=== PATIENT | female | born 1945 | race Caucasian/White ===

== ENCOUNTER 2016-11-27 20:56 | Observation (INO) | payer MEDICARE ==
[~2016-11-27] VITALS: Ht 167.6 cm; Wt 63.3 kg
--- NOTE | ~2016-11-27 | HEMODYNAMI ---
PATIENT:LEENA ELMORE MEDICAL RECORD: [id number] : 41 [id number] ADMISSION DATE: 11/28/16 Generatedon:11/29/201611:26 Patient name: LEENA ELMORE Patient #: [id number] SSN: : 1945 Date of study: 11/29/2016 Page: Of Hemodynamic Procedure Report Patient Data Patient Demographics Procedure consent was obtained First Name: LEENA Gender: Female Last Name: RAMÍREZ : 1945 Patient #: [id number] Age: 71 year(s) Race: Unknown Additional ID: [id number] Contact details [address]: [address] [place] [address] State: [place] City: [place] Zip code: [address] Admission Admission Data Admission Date: 11/28/2016 Admission Time: 0:59 Room #: D.2115 Lab Results Lab Result Date: 11/29/2016 Lab Result Time: 0:00 Biochemistry Name Units Result Min Max BUN mg/dl 17 --(---*)-- 7 18 Creatinine mg/dl 1 --(--*-)-- 0.6 1.3 CBC Name Units Result Min Max Hemoglobin g/dl 15.5 --(-*--)-- 13.5 17.5 Procedure Procedure Types Cath Procedure Diagnostic Procedure [facility] w/Coronaries PCI Procedure Coronary Stent Initial x2 Miscellaneous Procedures Moderate Sedation up to 45 minutes Procedure Description Procedure Date Procedure Date: 11/29/2016 Procedure Start Time: 10:54 Procedure End Time: 11:20 Procedure Staff Name Function Carlos Canela MD Performing Physician Christiano Curtis RT Scrub Camryn Sandoval RN Nurse Alfredo Singh RT Monitor Procedure Data Cath Procedure Fluoroscopy Diagnostic fluoroscopy Total fluoroscopy Time: 6.4 time: 6.4 min min Diagnostic fluoroscopy Total fluoroscopy dose: 577 dose: 577 mGy mGy Contrast Material Contrast Material Type Amount (ml) Isovue 300 137 Entry Location Entry Primary Successful Side Size Upsize Upsize Entry Closure Merrill ccessful Closure Location (Fr) 1 (Fr) 2 (Fr) Remarks Device Remarks Femoral Left 5 Fr 6 Fr Mechanical PT OPTED artery Short Compression OUT OF USING A CLOSURE DEVICE DUE TO ONLY 2% OF PT CANT HAVE THEM-PER IN [place]. USING A FEMSTOP INSTEAD. Diagnostic catheters Device Type Used For End Catheter Placement Cordis 5Fr JL 4.0 Left Coronary Catheter (MP) Angiography Cordis 5Fr 3DRC Catheter Right Coronary (MP) Angiography Cordis 5Fr Pigtail LV Angiography Catheter (MP) Procedure Complications No complications Procedure Medications Medication Administration Route Dosage unlisted medication Oxygen NC 2 l/min Heparin Flush Bag added to field 2 bags (1000units/500ml NS) Lidocaine 2% added to field 20 Versed I.V. 1 mg Fentanyl I.V. 50 mcg Versed I.V. 0.5 mg Fentanyl I.V. 25 mcg Fentanyl I.V. 25 mcg Versed I.V. 0.5 mg Fentanyl I.V. 25 mcg Fentanyl I.V. 25 mcg Heparin Bolus I.V. 4000 units Fentanyl I.V. 25 mcg Fentanyl I.V. 25 mcg Hemodynamics Rest Heart Rate: 63 (bpm) Pressure Samples Time Site Value (mmHg) Purpose Heart Use Rate(bpm) 10:59 LV 132/14,16 EDP 63 10:59 AO 125/58(85) Pullback 63 10:59 LV 129/17,18 Pullback 63 Gradients Valve Time Site 1 Site 2 Mean SEP/DFP Peak To Heart Use (mmHg) (sec/min) Peak Rate (mmHg) (bpm) Aortic 10:59 LV AO 4 19 4 63 129/17,18 125/58(85) Calculations Valve P-P Mean Valve Index Valve Source Name Gradient Area Flow (cm2) Aortic 4 4 4 4 Snapshots Pre Cath Intra NCS Post Cath Vital Signs Time Heart Resp SPO2 etCO2 DE9fhns NIBP (mmHg) Rhythm Pain Sedation Rate (ipm) (%) (mmHg) (mmHg) Status Level (bpm) 10:40:31 66 22 99 0 0 164/71(122) NSR 0 (11) 10(A) , No pain 10:45:00 64 17 98 0 0 155/65(108) NSR 0 (11) 10(A) , No pain 10:49:24 59 15 100 0 0 133/64(100) NSR 0 (11) 10(A) , No pain 10:53:42 58 18 99 0 0 118/61(89) NSR 0 (11) 10(A) , No pain 10:57:56 64 17 98 0 0 123/52(89) NSR 0 (11) 9(A) , No pain 11:02:12 61 17 97 0 0 119/51(82) NSR 0 (11) 9(A) , No pain 11:06:28 61 18 97 0 0 100/47(73) NSR 0 (11) 9(A) , No pain 11:10:38 63 19 97 0 0 98/47(74) NSR 0 (11) 9(A) , No pain 11:15:37 84 18 98 0 0 129/66(90) NSR 0 (11) 9(A) , No pain 11:19:22 65 16 98 0 0 130/66(93) NSR 0 (11) 9(A) , No pain Medications Time Medication Route Dose Verified Delivered Reason Notes Effectiveness by by 10:22:11 pt arrived IV is pt iv is infiltrated infilltrated red and raised, aprox. 3 inches of swelling and redness proximal to left wrist iv site. raised apx 1/2 inch. IV discontinued. new IV to be started. Dr rolle and Meseret Cavazos RN informed. 10:41:19 Oxygen NC 2 Carlos Camryn Per physician l/min St. Diego Sandoval RN, MD 10:41:29 Heparin Flush added 2 Carlos Carlos Per physician Bag to bags [facility] (1000units/500ml field MD LERMA NS) 10:41:40 Lidocaine 2% added 20ml Carols Carlos used for to vial [facility] procedure field MD LERMA 10:46:34 Versed I.V. 1 mg Carlos Camryn for sedation [facility] Diego Sandoval RN, MD 10:46:40 Fentanyl I.V. 50 Carlos Camryn for sedation mcg [facility] Diego Sandoval RN, MD 10:48:00 Fentanyl I.V. 25 Carlos Camryn for sedation mcg [facility] Diego Sandoval RN, MD 10:48:13 Versed I.V. 0.5 Carlos Camryn for sedation mg [facility]. Diego Sandoval RN, MD 10:50:45 Versed I.V. 0.5 Carlos Crowecca for sedation mg St. Diego Sadnoval RN, MD 10:50:54 Fentanyl I.V. 25 Carlos Crowecca for sedation mcg [facility] Diego Sandoval RN, MD 10:52:12 Fentanyl I.V. 25 Carlos Camryn for sedation mcg [facility] Diego Sandoval RN, MD 10:54:06 Fentanyl I.V. 25 Carlos Camryn for sedation mcg St[facility] Diego Sandoval RN, MD 10:56:06 Fentanyl I.V. 25 Carlos Camryn for sedation mcg St. Diego Sandoval RN, MD 11:00:38 Heparin Bolus I.V. 4000 Carlos Cowan for dose v erified units St. Diego Sandoval RN anticoagulation with dr st MD murray 11:01:30 Fentanyl I.V. 25 Carlos Camryn for sedation mcg St. Diego Sandoval RN, MD Procedure Log Time Note 10:00:50 Camryn Sandoval RN sent for patient. Start room use. 10:12:43 ACC Patient presents with Unstable Angina CCS Anginal Class 3--Marked limitation of physical activity, angina occurs with ordinary activity.. 10:12:47 Diagnostic Cath status Urgent 10:14:07 Time tracking: Call back 10:14:11 Plan of Care:Hemodynamics will remain stable., Cardiac rhythm will remain stable., Comfort level will be maintained., Respiratory function will remain adequate., Patient/ family verbilizes understanding of procedure., Procedure tolerated without complication., Recovers from procedure without complications.. 10:15:59 Lab Result : BUN 17 mg/dl 10:15:59 Lab Result : Hemoglobin 15.5 g/dl 10:15:59 Lab Result : Creatinine 1 mg/dl 10:21:28 Patient received from PCU to CCL 1 Alert and oriented. Tansferred to table in Supine position. 10:21:29 Warm blankets applied, and dereje hugger turned on for patient comfort. 10:21:30 Correct patient and procedure confirmed by team. 10:21:31 Signed procedure consent form obtained from patient. 10:21:33 ECG and BP/O2 sat monitors applied to patient. 10:22:11 pt arrived was administered by ; IV is infiltrated; pt iv is infilltrated red and raised, aprox. 3 inches of swelling and redness proximal to left wrist iv site. raised apx 1/2 inch. IV discontinued. new IV to be started. Dr rolle and Meseret Cavazos RN informed. 10:26:03 H&P Date Dictated: 11/28/2016 Within 30 days and on chart., H&P Addendum completed by physician on day of procedure. (MUST COMPLETE FOR ALL OUTPATIENTS). 10:26:05 Pre-procedure instructions explained to patient. 10:26:05 Pre-op teaching completed and patient verbalized understanding. 10:26:07 Family in waiting room. 10:26:09 Patient NPO since Midnight. 10:26:13 Is the patient allergic to Iodine/contrast media? No. 10:26:14 Is patient on blood thinner?Yes 10:26:17 ACC The patient was administered the following blood thiners within the last 24 hours: ACCPlavix 10:27:20 Last dose of Plavix was 11/28 in the pm. 10:27:47 Patient diabetic? No. 10:27:56 Patient not . Patient is over age 55. 10:27:59 Previous problem with sedation/anesthesia? No ? 10:28:01 Snore? No 10:28:02 Sleep apnea? No 10:28:04 Deviated septum? No 10:28:04 Opens mouth fully? Yes 10:28:05 Sticks out tongue? Yes 10:28:07 Airway obstruction? No ? 10:28:10 Dentures? No ? 10:28:14 Pre procedure: left dorsailis pedis pulse 1+ Palpable, but thready & weak; easily obliterated 10:30:01 Pt states that we are unable to try radial due to scar tissue per Physician in [place]. Pt also states that we are unable to go right femoral due to plugged artery from closure device. 10:30:17 Patient pain scale 0/10 ?. 10:30:34 IV left hand D/C'd due to infiltration. 10:30:40 Lab results completed and on chart. 10:31:33 IV started by Camryn Sandoval RN inleft forearm with a 20 gauge IV catheter with 0.9% NaCl at KVO. 10:31:40 Use device set Femoral Dx 10:31:42 Tegaderm 4 x 4 opened to sterile field. 10:31:43 Acist Manifold opened to sterile field. 10:31:43 Acist Hand Control opened to sterile field. 10:31:45 Acist Syringe opened to sterile field. 10:31:45 Bag Decanter opened to sterile field. 10:31:46 Medline Cath Pack opened to sterile field. 10:31:46 Terumo 5Fr Tuttle Sheath opened to sterile field. 10:31:47 St Pepe 260cm J .035 wire opened to sterile field. 10:31:48 Diagnostic Infinity 5Fr Multipack catheter opened to sterile field. 10:32:01 20g IV Catheter opened to sterile field. 10:39:12 Vital chart was started 10:41:19 Oxygen 2 l/min NC was administered by Camryn Sandoval RN; Per physician; 10:41:29 Heparin Flush Bag (1000units/500ml NS) 2 bags added to field was administered by Carlos Canela MD; Per physician; 10:41:40 Lidocaine 2% 20ml vial added to field was administered by Carlos Canela MD; used for procedure; 10:44:15 --------ALL STOP TIME OUT------ 10:44:15 Final Timeout: patient, procedure, and site verified with staff and physician. All members of the team are in agreement. 10:44:17 Left groin site verified by team. 10:44:21 Physical assessment completed. ASA score P 2 - A patient with mild systemic disease as per Carlos Canela MD. 10:44:25 Sedation plan: IV Moderate Sedation Versed, Fentanyl 10:46:34 Versed 1 mg I.V. was administered by Camryn Sandoval RN; for sedation; 10:46:40 Fentanyl 50 mcg I.V. was administered by Camryn Sandoval RN; for sedation; 10:48:00 Fentanyl 25 mcg I.V. was administered by Camryn Sandoval RN; for sedation; 10:48:13 Versed 0.5 mg I.V. was administered by Camryn Sandoval RN; for sedation; 10:50:45 Versed 0.5 mg I.V. was administered by Camryn Sandoval RN; for sedation; 10:50:54 Fentanyl 25 mcg I.V. was administered by Camryn Sandoval RN; for sedation; 10:52:12 Fentanyl 25 mcg I.V. was administered by Camryn Sandoval RN; for sedation; 10:53:55 Procedure started. 10:54:06 Fentanyl 25 mcg I.V. was administered by Camryn Sandoval RN; for sedation; 10:54:42 Local anesthetic to left femerol artery with Lidocaine 2% by Carlos Canela MD.INITIAL ACCESS ONLY 10:54:53 A 5 Fr sheath was inserted into the Left Femoral artery 10:55:08 A Cordis 5Fr JL 4.0 Catheter (MP) was advanced over the wire and used for Left Coronary Angiography. 10:55:11 LCA angiography performed. 10:56:06 Fentanyl 25 mcg I.V. was administered by Camryn Sandoval RN; for sedation; 10:56:28 Catheter removed. 10:56:34 A Cordis 5Fr 3DRC Catheter (MP) was advanced over the wire and used for Right Coronary Angiography. 10:56:41 RCA angiography performed. 10:57:47 Catheter removed. 10:57:53 A Cordis 5Fr Pigtail Catheter (MP) was advanced over the wire and used for LV Angiography. 10:57:56 LCA angiography performed. 10:58:02 LV gram done using MC 10:58:04 LV hemodynamics recorded. 10:58:07 Injector settings: Ml/sec: 10, Volume: 20, 10:59:42 EF : 60 % 10:59:43 Catheter removed. 10:59:51 Sheath upsized to a 6 Fr Short. 11:00:08 ACC PCI Site: pLAD has 80% stenosis. 11:00:11 ACC Pre-intervention AURORA Flow is 3. 11:00:27 Perez [place] 300cm 0.014 guide wire opened to sterile field. 11:00:28 Terumo 6Fr Tuttle Sheath opened to sterile field. 11:00:28 Eyewitness Surveillance BasixCompak Inflation Kit opened to sterile field. 11:00:29 Cordis 6FR XBLAD 3.5 guide catheter opened to sterile field. 11:00:38 Heparin Bolus 4000 units I.V. was administered by Camryn Sandoval RN; for anticoagulation; dose verified with dr rolle 11:00:39 6 Fr XBLAD 3.5 guide catheter was inserted over the wire 11:01:30 Fentanyl 25 mcg I.V. was administered by Camryn Sandoval RN; for sedation; 11:01:30 COUGAR wire advanced. 11:05:08 Inflation Number: 1 A Medtronic Integrity 3.0 X 15 stent was prepped and advanced across the Prox LAD. The stent was deployed at 12 CHAVA for 0:22 (min:sec). 11:05:33 Wire removed. 11:05:46 ACC PCI Site: pCirc has 80% stenosis. 11:05:50 ACC Pre-intervention AURORA Flow is 3. 11:05:56 COUGAR wire advanced. 11:06:36 Stent catheter was removed intact over wire. 11:08:46 Inflation number: 1 A [place] Sci [place] 2.5 X 15 balloon was prepped and advanced across the Prox CX, then inflated to 6 CHAVA for 0:06 (min:sec). 11:09:34 Inflation number: 2 The [place] Sci [place] 2.5 X 15 balloon was reinflated across the Prox CX, to 8 CHAVA for 0:25 (min:sec). 11:10:09 Balloon removed over the wire. 11:10:59 Procedure type changed to Cath procedure, Diagnostic procedure, LHC, LHC w/Coronaries, PCI procedure, Coronary Stent Initial x2, Miscellaneous Procedures, Moderate Sedation up to 45 minutes 11:12:23 Inflation Number: 3 A Medtronic Integrity 2.5 X 8 stent was prepped and advanced across the Prox CX. The stent was deployed at 10 CHAVA for 0:21 (min:sec). 11:12:59 Stent catheter was removed intact over wire. 11:13:00 Wire removed. 11:13:00 Guide catheter removed. 11:15:30 Sheath removed intact; hemostasis achieved with Mechanical Compression to the Left Femoral artery. 11:15:44 St Pepe Femstop Arch Gold opened to sterile field. 11:15:48 Procedure ended.(Physican Out) 11:19:02 Contrast amount:Isovue 300 137ml. 11:19:07 Fluoroscopy time 06.40 minutes. 11:19:11 Fluoroscopy dose: 577 mGy 11:19:11 Flurop Dose total: 577 11:19:12 Sharps counted by scrub and verified by R.N. 11:19:13 Insertion/operative site no bleeding no hematoma. 11:19:23 Post left femerol artery:stable 11:19:31 Femstop placed over the left femerol artery at 150 mmHg. Hemostasis achieved. 11:19:33 Post Procedure Pulses reassessed and unchanged 11:19:39 Post procedure rhythm: sinus rhythm 11:19:41 Post procedure instruction explained to patient.Patient verbalizes understanding. 11:20:19 Procedure and supply charges have been captured, reviewed, submitted and are correct. 11:20:40 Procedure Complication : No complications 11:20:42 Vital chart was stopped 11:20:44 Report given to PCU. 11:20:46 See physician's report for complete and final results. 11:20:50 Patient transfered to PCU with Bed. 11:20:52 Procedure ended. 11:20:52 Full Disclosure recording stopped 11:20:57 End room use (Document Last) Intervention Summary Intervention Notes Time ActionType Lesion and Equipment Action# Pressure Duration Attributes Used 11:05:08 Place stent Prox LAD Medtronic 1 12 00:23 Integrity 3.0 X 15 stent 11:08:46 Inflate Prox CX [place] 1 6 00:06 balloon Sci [place] 2.5 X 15 balloon 11:09:34 Reinflate Prox CX [place] 2 8 00:25 balloon Sci [place] 2.5 X 15 balloon 11:12:23 Place stent Prox CX Medtronic 3 10 00:21 Integrity 2.5 X 8 stent Device Usage Item Name Manufacture Quantity Catalog Number Hospital Part Current Mini [facility] Lot# / Charge Number Stock Stock Serial# Code Tegaderm 4 3M 1 [id number] 193736 241418 480489 5 x 4 Acist Acist 1 07340 585111 625833 661226 5 Manifold Medical Systems Inc Acist Hand Acist 1 22893 113947 542072 541609 5 Control Medical Systems Inc Acist Acist 1 39858 007476 552963 689648 20 Syringe Medical Systems Inc Bag Microtek 1 2002S 962348 17340 998611 5 Blogvio. Medline Cardinal 1 [id number] 029758 84017 212569 5 Cath StudentFunder Terumo 5Fr Terumo 1 [id number] 377551 550628 488077 [address]pe St Pepe 1 684856 539381 104595 107290 30 260cm J .035 wire Diagnostic Cardinal 1 [id number] 718080 86225 467598 30 Infinity Health 5Fr Multipack catheter 20g IV B. Mcclure 1 [id number] 155770 132547 924052 5 Catheter Cordis 5Fr Cardinal 1 256292 5 JL 4.0 Health Catheter (MP) Cordis 5Fr Cardinal 1 325912 5 3DRC Health Catheter (MP) Cordis 5Fr Cardinal 1 544225 5 Pigtail Health Catheter (MP) Perez Perez 1 [id number] 078875 364015 613146 1 [place] Vascular 300cm 0.014 guide wire Terumo 6Fr Terumo 1 ODS607 347889 541966 695051 40 Tuttle Sheath Merit Merit 1 [id number] 480713 447201 107571 15 K Spine Medical Inflation Kit Cordis 6FR Cardinal 1 [id number] 417411 004143 965333 10 XBLAD 3.5 Health guide catheter Medtronic Medtronic 1 [id number] 072211 797928 5 [id number] Integrity 3.0 X 15 stent [place] Sci [place] 1 [id number] 772955 442509 410968 1 [id number] [place] Scientific 2.5 X 15 balloon Medtronic Medtronic 1 [id number] 578012 598062 7 [id number] Integrity 2.[address] Pepe 1 [id number] 491670 052251 891239 5 Femstop Arch Gold Signature Audit [place] Stage Time Signature Unsigned Intra-Procedure 11/29/2016 Alfredo Singh 11:26:52 AM RT(R) Signatures Monitor : Alfredo Singh RT Signature : Date : Time : [facility] [address] [place] [address]
[2016-11-27 22:02] LABS: BASOPHILS 0.8 % (0-2); EOSINOPHILS 2.9 % (0-7); HEMATOCRIT 42.4 % (36.0-48.0); HEMOGLOBIN 14.3 g/dL (12-16); IMMATURE GRANULOCYTES 0.2 % (0-5); LYMPHOCYTES 31.3 % (15-50); MCH 30.8 pg (26.0-34.0); MCHC 33.7 g/dL (31.0-37.0); MCV 91.2 fL (80.0-100.0); MEAN PLATELET VOLUME 10.9 fL (7.4-10.4); MONOCYTES 10.2 % (2-11); NEUTROPHILS 54.6 % (40-80); PLATELET COUNT 203 10x3/uL (130-400); RBC 4.65 10x6/uL (4.00-5.40); RDW 13.5 % (11.5-14.5); WBC 5.2 10x3/uL (4.8-10.8)
[2016-11-27 22:17] LABS: ALBUMIN 3.9 g/dL (3.4-5.0); ALKALINE PHOSPHATASE 66 U/L (46-116); ALT (SGPT) 28 U/L (10-68); BILIRUBIN - TOTAL 0.61 mg/dL (0.2-1.3); CALC OSMOLALITY 276 mosm/kg (275-300); CALCIUM 9.5 mg/dL (8.5-10.1); CARBON DIOXIDE 27.1 mmol/L (21.0-32.0); CHLORIDE - SERUM 102 mmol/L (98-107); CREATININE - SERUM 0.8 mg/dL (0.6-1.3); GLUCOSE 85 mg/dL (74-106); POTASSIUM - SERUM 3.8 mmol/L (3.5-5.1); PROTEIN - SERUM 7.7 g/dL (6.4-8.2); SODIUM 139 mmol/L (136-145); UREA NITROGEN 12 mg/dL (7-18); eGFR NON AFRICAN AMERICAN 74 mL/min (90-120)
[2016-11-27 22:27] LABS: AMYLASE - SERUM 56 U/L (25-115); CKMB 0.7 U/L (0.0-3.6); LIPASE 107 U/L (73-393)
[2016-11-27 22:28] LABS: CREATINE KINASE 816 UL (21-215); TROPONIN-I < 0.017 ng/mL (0.000-0.060)
[2016-11-28 06:36] LABS: CKMB 0.7 U/L (0.0-3.6)
[2016-11-28 06:42] LABS: CREATINE KINASE 873 UL (21-215); TROPONIN-I < 0.017 ng/mL (0.000-0.060)
[2016-11-28 11:08] LABS: CKMB 0.7 U/L (0.0-3.6); CREATINE KINASE 926 UL (21-215); TROPONIN-I < 0.017 ng/mL (0.000-0.060)
[2016-11-28 16:49] LABS: CKMB 0.7 U/L (0.0-3.6)
[2016-11-28 16:54] LABS: CREATINE KINASE 939 UL (21-215); TROPONIN-I < 0.017 ng/mL (0.000-0.060)
--- NOTE | 2016-11-28 16:59 | NUR ---
TRANSFER FROM ER BY W/C. ANNAINTED TO ROOM. CALL LIGHT IN REACH. WILL CONT. PLAN OF CARE.
[2016-11-28 17:32] VITALS: BP 129/65
[2016-11-28] MEDS ORDERED: PLAVIX75 MG PO (17:43)
[2016-11-28] MEDS ORDERED: LOPRESSOR25 MG PO (17:43)
[2016-11-28] MEDS ORDERED: BAYER CHEWABLE81 MG PO (17:43)
[2016-11-28] MEDS ORDERED: LEXAPRO10 MG PO (17:44)
[2016-11-28] MEDS ORDERED: ISOSORBIDE MONO30 M1 PO (17:44)
[2016-11-28 17:45] VITALS: BP 134/68; Ht 167.6 cm; Wt 63.3 kg
[2016-11-28 20:00] VITALS: BP 138/61
[2016-11-28 22:57] LABS: CKMB 0.7 U/L (0.0-3.6)
[2016-11-28 22:58] LABS: CREATINE KINASE 891 UL (21-215); TROPONIN-I < 0.017 ng/mL (0.000-0.060)
[2016-11-29] VITALS: BP 124/58
[2016-11-29 04:00] VITALS: BP 111/52
[2016-11-29 05:01] LABS: BASOPHILS 0.8 % (0-2); EOSINOPHILS 1.8 % (0-7); HEMATOCRIT 46.3 % (36.0-48.0); HEMOGLOBIN 15.5 g/dL (12-16); IMMATURE GRANULOCYTES 0.2 % (0-5); LYMPHOCYTES 29.4 % (15-50); MCH 30.8 pg (26.0-34.0); MCHC 33.5 g/dL (31.0-37.0); MCV 91.9 fL (80.0-100.0); MEAN PLATELET VOLUME 10.6 fL (7.4-10.4); MONOCYTES 15.6 % (2-11); NEUTROPHILS 52.2 % (40-80); PLATELET COUNT 214 10x3/uL (130-400); RBC 5.04 10x6/uL (4.00-5.40); RDW 13.7 % (11.5-14.5); WBC 6.2 10x3/uL (4.8-10.8)
[2016-11-29 05:33] LABS: CALCIUM 9.3 mg/dL (8.5-10.1); CARBON DIOXIDE 26.3 mmol/L (21.0-32.0); CHLORIDE - SERUM 101 mmol/L (98-107); CKMB 0.7 U/L (0.0-3.6); GLUCOSE 84 mg/dL (74-106); SODIUM 136 mmol/L (136-145); eGFR NON AFRICAN AMERICAN 58 mL/min (90-120)
[2016-11-29 05:34] LABS: CALC OSMOLALITY 272 mosm/kg (275-300); CREATINE KINASE 862 UL (21-215); TROPONIN-I < 0.017 ng/mL (0.000-0.060); UREA NITROGEN 17 mg/dL (7-18)
[2016-11-29 08:00] VITALS: BP 140/56
--- NOTE | 2016-11-29 10:24 | NUR ---
PRE-OPS GIVEN. TO WOOD CARVING LATHE OPERATOR BY BED.
[2016-11-29 10:55] LABS: APPEARANCE CLEAR (CLEAR); BILIRUBIN NEGATIVE (NEGATIVE); COLOR YELLOW (YELLOW); GLUCOSE NEGATIVE (NEGATIVE); KETONE MODERATE mg/dL (NEGATIVE); LEUKOCYTE ESTERASE TRACE (NEGATIVE); NITRITE NEGATIVE (NEGATIVE); PROTEIN NEGATIVE (NEGATIVE); SPECIFIC GRAVITY 1.015 (1.005-1.020); UROBILINOGEN NORMAL (NORMAL)
[2016-11-29 10:58] LABS: BACTERIA MODERATE /hpf (NONE SEEN); EPITHELIAL CELLS 0-5 /hpf (0-5); MUCUS <1+ /lpf (NONE SEEN)
--- NOTE | 2016-11-29 11:40 | NUR ---
BACK FROM RECORDER GRAVITY PROSPECTING. VS WNL. LEFT GROIN STABLE WITH FEMSTOP INTACT. WILL MONITOR.
[2016-11-29 12:00] VITALS: BP 126/58
--- NOTE | 2016-11-29 12:35 | NUR ---
FEMSTOP RELEASED. PULSES PRESENT. NO BLEEDING NOTED. WILL CONT. TO MONITOR.
[2016-11-29] MEDS ORDERED: NORVASC10 MG PO (15:11)
[2016-11-29 16:00] VITALS: BP 119/56
--- NOTE | 2016-11-29 17:06 | NUR ---
BED REST UP. GROIN STABLE.
--- NOTE | 2016-11-29 18:30 | NUR ---
IV AND TELEMETRY DCD. DC PLANS GIVEN. UNDERSTANDING VOICED. ESCORTED TO CAR BY W/C.
--- NOTE | 2016-11-30 09:17 | OP ---
PATIENT NAME: LEENA ELMORE MEDICAL RECORD: [id number] :41 LOCATION:D.M2 D.2115 ADMISSION DATE:11/28/16 SURGEON: ANGELA ELIZABETH MD DATE OF OPERATION: 11/29/2016 PROCEDURE: Left heart catheterization, selective coronary angiography, left femoral artery approach. CATHETERS: A 5-Persian sheath, 5/4 left and right Emile, 5/4 pig. The procedure was well tolerated and the patient returned to otto. Sheath removed. Adequate hemostasis was obtained. FINDINGS: Left ventriculography in 30-degree MC view: Normal wall motion and normal systolic function. CORONARY ANATOMY: LEFT MAIN: Left main free of disease. LAD: Has an ostial stenosis of approximately 80% as originally having 4 previously placed stents. CIRCUMFLEX: Circumflex has about HAZY 40% stenosis at the elbow of first large OM. RIGHT CORONARY ARTERY: Has about a 50% stenosis in its proximal portion. DESCRIPTION: A 5-Persian sheath was changed for a 6-Persian sheath. An XB LAD guiding catheter provided excellent guide catheter support followed by 300 cm [place] XT wire, which was placed across the tightly occluded LAD down to portion of vessel. A 3.0 x 15 mm Integrity nondrug-eluting stent was inflated up to 14 atmospheres, shows nice resolutions of 80% stenosis; however, there some snowplowing into the circumflex. Circumflex was then wired and initially attempted dilatation with a 2.5 x 12 mm [place] balloon; however, this is still shows significant residual from the snowplow and a 2.5 x 8 Integrity nondrug-eluting stent was inflated up to 14 atmospheres for 45 seconds. Final injection shows excellent resolution of this with no significant residual. IMPRESSION: 1. Successful stenting to left anterior descending. 2. Successful stenting to proximal circumflex. COMPLICATIONS: None. Sheath was closed with manual pressure and Fem-Stop device was placed. Heparin was used during the case. The patient was previously on Plavix. TRANSINT:[id number] Voice Confirmation ID: [id number] DOCUMENT ID: [id number] ANGELA ELIZABETH MD at 0917 CC: [id number] DICTATION DATE: 11/29/16 1119 SUSTAINABILITY PURCHASING AGENT: 11/29/16 1654 DIS IN 11/29/16 [facility] [address] [place] [address]
--- NOTE | 2016-11-30 09:17 | CN ---
PATIENT NAME:LEENA ELMORE MEDICAL RECORD: [id number] : 41 LOCATION:[facility] D.2115 ADMIT DATE: 11/28/16 ACCOUNT: [id number] CONSULTING PHYSICIAN: ANGELA ELIZABETH MD REFERRING PHYSICIAN: PRO SYKES MD DATE OF CONSULTATION: 11/29/2016 Cardiology Consultation HISTORY OF PRESENT ILLNESS: A 71-year-old anxious apprehensive lady with known history of coronary artery disease, status post intervention; maintained on long-acting nitrates, beta-rogelio, Plavix, began having chest pain, atypical, starting in the abdomen, it was sharp, stabbing; however, she reports this is classic for her previous angina. She had been traveling. Of note, D-dimer is negative. Cardiac enzymes were negative. We are asked to see her concerning her cardiovascular status. PAST MEDICAL HISTORY: 1. History of coronary artery disease. 2. Hypertension. 3. Hyperlipidemia. 4. Anxiety. MEDICATIONS: Include Lexapro 10 mg p.o. q. day, aspirin 81 q. day, metoprolol 25 b.i.d., Imdur 30 q.h.s., and Plavix 75 q. day. ALLERGIES: ERYTHROMYCIN, LATEX. SOCIAL HISTORY: She actually lives in [place]. She is a nonsmoker. Easily takes care of her ADLs. REVIEW OF SYSTEMS: The patient reports easy bruising but reports no swollen glands. The patient reports no fever, no night sweats, no significant weight gain, no significant weight loss. No significant exercise tolerance. The patient reports no dry eyes, no irritation, no vision change. Patient reports no difficulty hearing and no ear pain. Patient reports no frequent nose bleeds or nose and sinus problems. Patient reports on arm pain on exertion. No shortness of breath while lying down. No history of heart murmur. Patient reports no cough, no wheezing or coughing up blood. Patient reports no abdominal pain, no vomiting. Normal appetite. No diarrhea and not vomiting blood. No nausea and no constipation. Patient reports no incontinence. No difficulty urinating. No hematuria. No increased frequency. Patient reports no muscle aches. No weakness, no arthralgias, no back pain. No swelling of the extremities. Patient reports no abnormal mole, no jaundice, no rashes. Reports no loss of consciousness. No weakness and no numbness. No seizures, dizziness, or headaches. The patient reports no depression, no sleep disturbance, feeling safe in a relationship and no alcohol abuse. Patient reports on fatigue. Reports no runny nose or sinus pressure. No itching, no hives, and no frequent sneezing. PHYSICAL EXAMINATION: GENERAL: Pleasant female, in no acute distress. VITAL SIGNS: Blood pressure 140/56, pulse 60 and regular. HEENT: Normocephalic and atraumatic. NECK: No JVD or bruit. CONSULT REPORT [id number] LEENA ELMORE HEART: Regular. LUNGS: Roy are clear. ABDOMEN: Soft and nontender. EXTREMITIES: Pulses 2+. There is no edema. NEUROLOGIC: Grossly intact. DIAGNOSTIC DATA: ECG without acute change. Cardiac enzymes are negative as described above. IMPRESSION: Atypical angina, but typical for her symptomatology. We will plan for diagnostic angiography, intervention based on above. TRANSINT:[id number] Voice Confirmation ID: [id number] DOCUMENT ID: [id number] ANGELA ELIZABETH MD at 0917 CC: [id number] DICTATION DATE: 11/29/16919 PEANUT SEPARATOR: 11/29/16 1502 DIS IN 11/29/16 [facility] [address] [place] [address]
== END 2016-11-29 18:31 | disposition home or self-care (01) ==
LOC: EDBD 20:56 → D.ER 20:56 → D.SDCHOLD 11-28 00:59 → OBSVTIME 11-28 00:59 → D.M2 11-28 00:59
PROVIDERS: Emergency Medicine; ADMIT Family Medicine
DX: I25.10 Atherosclerotic heart disease of native coronary artery without angina pectoris (principal); Z86.12 Personal history of poliomyelitis; M19.90 Unspecified osteoarthritis, unspecified site; F41.9 Anxiety disorder, unspecified